=== PATIENT | male | born 1990 | race Caucasian/White ===

== ENCOUNTER 2021-03-09 03:12 | Inpatient (IN) | payer MEDICAID, SELFPAY ==
[2021-03-09] VITALS (53 sets, daily range): BP systolic 115–152; BP diastolic 51–95; PULSE 82–115; RESP 16–25; TEMP 36.3–36.9; O2SAT 74–99; BMI 29.0
--- NOTE | ~2021-03-09 | XR_ITS ---
EXAMINATION: XR chest 2V DATE: 03/12/2021 10:15 INDICATION: Pneumonia presenting with cough and chest pain post recent drug overdose with CPR. TECHNIQUE: PA and lateral views of the chest were obtained. COMPARISON: Chest CT dated 03/09/2021 FINDINGS: Confluent airspace opacities in the bilateral lower lobes and in the left perihilar region consistent with pneumonia. Small bilateral pleural effusions with blunting at the posterior sulci. No pneumotho rax. The cardiomediastinal silhouette is normal. Visualized bones and soft tissues are unremarkable. IMPRESSION: 1. Bilateral lung disease consistent with multifocal pneumonia which given distribution and provided clinical history is likely related to aspiration. 2. Small bilateral pleural effusions. Reviewed, dictated and finalized at location A. IMPRESSION: 1. Bilateral lung disease consistent with multifocal pneumonia which given dist ribution and provided clinical history is likely related to aspiration. 2. Small bilateral pleural effusions.
--- NOTE | ~2021-03-09 | CT_ITS ---
EXAMINATION: CT brain wo con, CT cervical spine wo con EXAM DATE: 03/09/2021 05:05 INDICATION: Head injury. CPR. TECHNIQUE: Spiral CT of the head was performed without contrast. Axial, coronal and sagittal images were reviewed. Spiral CT of the cervical spine was performed without contrast. Axial images were rev iewed. Coronal and sagittal reformatted images were also reviewed. The dose-length product (DLP) fo r this examination was 605.33 (accession [id number]), 508.53 (accession [id number]) mGy-cm. The exposure was tailored according to patient size, and iterative reconstruction (ASIR) was used as additional dose reduction technique. There is no prior study for comparison. FINDINGS: HEAD CT: There is no acute intraparenchymal hemorrhage. No evidence of intraparenchymal brain mass lesion. No evidence of acute infarction. There is no mass effect or midline shift. There is no obst ructive hydrocephalus suspected. There are no extra-axial collections. There are no acute calvarial fractures. The orbits are unremarkable. Soft tissue is unremarkable. The visualized sinuses and m astoid air cells are well aerated. CERVICAL CT: There is ill-defined bilateral upper lobe acute airspace disease, pneumonitis. Please co rrelate with CT chest report same date. There is no evidence of acute cervical fracture. The odontoi d process is intact. Pre-dens space is normal. Prevertebral soft tissue is normal. There are no so ft tissue abnormalities identified. There is no disc space widening or traumatic vertebral body subl uxation suspected. Vertebral body and disc heights are well-maintained. A detailed level by level evaluation of spondylosis can be added as addendum if requested. IMPRESSION: 1. No acute intracranial findings or cervical fracture. 2. Acute upper lobe pneumonitis. Reviewed, dictated and finalized at location A. IMPRESSION: 1. No acute intracranial findings or cervical fracture. 2. Acute upper lobe pneumonitis.
--- NOTE | ~2021-03-09 | CT_ITS ---
EXAMINATION: CT chest abdomen pelvis w con EXAM DATE: 03/09/2021 05:05 INDICATION: Chest trauma, had CPR done. TECHNIQUE: Spiral CT of the chest, abdomen and pelvis was performed following intravenous injection o f 100 mL Omnipaque 350. Axial, coronal and sagittal images chest, abdomen and pelvis were reviewed. Coronal maximum intensity pixel images of chest reviewed. The dose-length product (DLP) for this ex amination was 1598.53 mGy-cm. The exposure was tailored according to patient size (auto mA exposure control), and iterative reconstruction (ASIR) was used as additional dose reduction technique. There is no prior study for comparison. FINDINGS: CHEST: Several nondisplaced left rib fractures anteriorly. There is dependent left lung predominant a irspace disease with regions of confluence and more nondependent groundglass opacities. Probably aspi ration pneumonia, pneumonitis. There are no pleural or pericardial effusions. Tracheobronchial burak e is patent. There is no mediastinal, hilar or axillary lymphadenopathy. There is no pneumothorax . Heart normal in size. No evidence of coronary arterial calcification. ABDOMEN PELVIS: The liver, spleen, adrenal glands and pancreas are unremarkable. Gallbladder is unre markable. No biliary obstruction. Portal and splenic veins are patent. Kidneys enhance symmetrical ly. There is no hydronephrosis. The prostate is unremarkable. The bladder is unremarkable. There is no retroperitoneal or pelvic lymphadenopathy. There are no findings to suggest appendicitis. There is mild edema of the colon at the hepatic flexur e, possible mild colitis. The stomach and small bowel are unremarkable. There is expected amount of colonic stool. No free intraperitoneal gas. IMPRESSION: 1. Moderate amount of confluent pneumonia, groundglass opacities consistent with pneumonitis. Consid er aspiration etiology. 2. Several nondisplaced left rib fractures anteriorly. 3. Possible mild hepatic flexure colitis. Reviewed, dictated and finalized at location A. IMPRESSION: 1. Moderate amount of confluent pneumonia, groundglass opacities consistent wi th pneumonitis. Consider aspiration etiology. 2. Several nondisplaced left rib fractures anteriorly. 3. Possible mild hepatic flexure colitis.
--- NOTE | 2021-03-09 03:25 | ECG_ITS ---
Measurements Intervals [place] Rate: 97 P: 49 NV: 146 QRS: 72 QRSD: 113 T: 47 QT: 363 QTc: 462 Interpretive Statements SINUS RHYTHM INTRAVENTRICULAR CONDUCTION DELAY DELAYED PRECORDIAL R/S TRANSITION ST ELEVATION IN DIFFUSE LEADS, PROBABLY EARLY REPOLARIZATION BASELINE ARTIFACT- II, III, AVR, AVF, V3-V6 BORDERLINE ECG Electronically Signed On 03-09-2021 7:51:43 CDT by Blayne Cortez D.O.
[2021-03-09] MEDS: NALOXONE HCL INJ 2 MG/2 ML AMP IV PUSH (03:45)
[2021-03-09 03:53] LABS: Alveolar/Arterial O2 Gradient 604.4 mmHg; Base Excess ABG -3.7 mEq/l (+/-2.0); Fractional Inspired Oxygen 100 %; HCO3 ABG 22.8 mEq/l (22.0-26.0); Oxygen Content ABG 19.2 %vol (16.0-22.0); Oxygen Saturation ABG 89.5 % (95.0-100.0); Oxyhemoglobin 87.1 % THb (90.0-100.0); PCO2 ABG 46.7 mmHg (35.0-45.0); PO2 ABG 61.9 mmHg (80.0-100.0); PO2 FiO2 Ratio Arterial Blood 0.62 %; Total Hemoglobin 15.7 g/dL (12.0-18.0); pH ABG 7.307 (7.350-7.450)
[2021-03-09 03:54] LABS: Modified Allen's Test Pass; Site Drawn RIGHT RADIAL
[2021-03-09 03:55] LABS: Device NON-REBREATHER MASK
[2021-03-09 04:19] LABS: Basophils Percent Auto 0.6 % (0.2-1.2); Eosinophils Absolute Auto 0.1 K/mm3 (0-0.3); Eosinophils Percent Auto 0.7 % (0-4.4); Hemoglobin 14.9 g/dL (14.0-18.0); Lymphocytes Absolute Auto 1.45 K/mm3 (0.9-3.2); Lymphocytes Percent Auto 21.6 % (18.3-44.2); Mean Corpuscular HGB Conc 33.1 g/dl (32-36); Mean Corpuscular Hemoglobin 31.5 pg (26-34); Mean Corpuscular Volume 95.1 fl (80-100); Mean Platelet Volume 9.5 fl (7.4-10.4); Monocytes Absolute Auto 0.4 K/mm3 (0.1-0.6); Monocytes Percent Auto 6.6 % (2.6-8.5); Neutrophils Absolute Auto 4.5 K/mm3 (1.3-6.7); Neutrophils Percent Auto 67.5 % (45.5-73.1); Platelet Count Result 237 k/mm3 (150-375); Red Blood Count 4.73 M/mm3 (4.6-6.20); Red Cell Distribution Width 11.9 % (11.5-14.5); White Blood Count 6.7 K/mm3 (4.5-10.0)
[2021-03-09 04:36] LABS: Alanine Aminotransferase 24 U/L (4-50); Albumin Level 3.9 g/dL (3.5-5.1); Alkaline Phosphatase 70 U/L (38-126); Anion Gap 8 mmol/L (8-16); Aspartate Amino Transferase 29 U/L (17-59); Bilirubin,Total 0.3 mg/dL (0.2-1.3); Blood Urea Nitrogen 12 mg/dL (9-20); Calcium 8.7 mg/dL (8.4-10.2); Carbon Dioxide 27 mmol/L (22-30); Chloride 107 mmol/L (98-107); Estimated CRCL calculation 121 ml/min; Estimated Glomerular Filt Rate > 60; Glucose 103 mg/dL (65-110); Lactic Acid Reflex 2.1 mmol/L (0.7-2.1); Potassium 4.2 mmol/L (3.4-5.0); Sodium 142 mmol/L (137-145)
[2021-03-09 04:47] LABS: Troponin I < 0.012 ng/mL (0.000-0.034)
[2021-03-09 04:53] LABS: Add Urine Microscopic? YES; Appearance Urine Cloudy (Clear); Bacteria Urine 1+ /hpf; Bilirubin Urine Negative (Negative); Blood Urine 1+ (Negative); Color Urine Yellow (Yellow); Glucose Urine UA 1+ mg/dL (Negative); Ketones Urine Trace mg/dL (Negative); Leukocyte Esterase Ur Trace LEU/UL (Negative); Mucus Urine Heavy /lpf; Nitrate Urine Negative (Negative); Protein Urine 3+ mg/dL (Negative); WBC Urine 51-75 /hpf
[2021-03-09 04:54] LABS: Specific Grav Ur 1.033 (1.001-1.035)
--- NOTE | 2021-03-09 05:04 | ED.GENADULT ---
HPI - General Adult General Chief complaint: Overdose Stated complaint: OD Time Seen by Provider: 03/09/21 03:14 History of Present Illness HPI narrative: Patient 30-year-old gentleman presents emerged from with chief complaint of overdose. The patient states that he was using what he thought was cocaine and ended up being an opiate type medication the patient had CPR performed on him by bystanders and received Narcan by EMS and police. On arrival the patient is awake alert reports that his chest is sore from where he received compressions and reports that he feels a little drowsy. Related Data Allergies Allergy/AdvReac Type Severity Reaction Status Date / Time No Known Allergies Allergy Verified 03/09/21 04:06 Review of Systems Review of Systems: A 10 system review of systems was completed on the patient and is negative except for what is stated in the HPI. Nursing and ancillary documentation was reviewed. Exam Narrative: GENERAL: Well-appearing, well-nourished, and in no acute distress. HEAD: Normocephalic, atraumatic. EYES: PERRLA and EOMI. ENT: Nares clear, no rhinorrhea or epistaxis. Mucous membranes moist. NECK: Supple. CHEST: Clear to auscultation. No respiratory distress. Chest wall is tender to palpation there is no crepitus noted or subcu emphysema HEART: Regular rate and rhythm. No murmur heard. Normal peripheral pulses. ABDOMEN: Soft, nontender, nondistended, normal active bowel sounds. EXTREMITIES: Normal range of motion. No edema. SKIN: Warm, dry, no rash. NEURO: No focal deficits. Alert and oriented x3. PSYCH: Normal mood and affect. Course Vital Signs Vital signs: Vital Signs Pulse Rate 113 H 03/09/21 03:51 Respiratory Rate 20 03/09/21 03:51 Temperature 36.7 C 03/09/21 04:04 Pulse Rate 92 03/09/21 06:01 Respiratory Rate 23 H 03/09/21 06:01 Blood Pressure 147/95 H 03/09/21 06:01 Pulse Oximetry 95 03/09/21 06:29 Medical Decision Making Vital Signs Vital Signs: Vital Signs Pulse Rate 113 H 03/09/21 03:51 Respiratory Rate 20 03/09/21 03:51 Temperature 36.7 C 03/09/21 04:04 Pulse Rate 92 03/09/21 06:01 Respiratory Rate 23 H 03/09/21 06:01 Blood Pressure 147/95 H 03/09/21 06:01 Pulse Oximetry 95 03/09/21 06:29 Lab Data Result diagrams: 03/09/21 04:07 03/09/21 04:07 Labs: Lab Results 03/09/21 03/09/21 03/09/21 Range/Units 04:07 04:07 04:07 WBC 6.7 (4.5-10.0) K/mm3 RBC 4.73 (4.6-6.20) M/mm3 Hgb 14.9 (14.0-18.0) g/dL Hct 45.0 (42.0-52.0) % MCV 95.1 (80-100) fl MCH 31.5 (26-34) pg MCHC 33.1 (32-36) g/dl RDW 11.9 (11.5-14.5) % Plt Count 237 (150-375) k/mm3 MPV 9.5 (7.4-10.4) fl Immature Gran % (Auto) 3.0 H (0-0.5) % Neut % (Auto) 67.5 (45.5-73.1) % Lymph % (Auto) 21.6 (18.3-44.2) % Holt % (Auto) 6.6 (2.6-8.5) % Eos % (Auto) 0.7 (0-4.4) % Baso % (Auto) 0.6 (0.2-1.2) % Lymph # (Auto) 1.45 (0.9-3.2) K/mm3 Holt # (Auto) 0.4 (0.1-0.6) K/mm3 Eos # (Auto) 0.1 (0-0.3) K/mm3 Baso # (Auto) 0.0 (0.0-0.1) K/mm3 Abs Immat Gran (auto) 0.20 H (0.00-0.031) K/mm3 Absolute Neuts (auto) 4.5 (1.3-6.7) K/mm3 Absolute Nucleated RBC 0.0 (0.0-0.012) K/mm3 Nucleated RBC % 0.0 (0.0-0.2) % Sodium 142 (137-145) mmol/L Potassium 4.2 (3.4-5.0) mmol/L Chloride 107 (98-107) mmol/L Carbon Dioxide 27 (22-30) mmol/L Anion Gap 8 (8-16) mmol/L BUN 12 (9-20) mg/dL Creatinine 0.90 (0.7-1.3) mg/dL Estim Creat Clear Calc 121 ml/min Estimated GFR > 60 (59 - ) Glucose 103 (65-110) mg/dL Lactic Acid (0.7-2.1) mmol/L Calcium 8.7 (8.4-10.2) mg/dL Total Bilirubin 0.3 (0.2-1.3) mg/dL AST 29 (17-59) U/L ALT 24 (4-50) U/L Alkaline Phosphatase 70 (38-126) U/L Troponin I < 0.012 (0.000-0.034) ng/mL Total Protein 7.0 (6.3-8.2) g/dL Albumin
[2021-03-09] MEDS: AMPICILLIN SULB 3 GM/NS 100 ML 3 GM/100 ML VIAL IVPB ×3 (07:04→17:58)
[2021-03-09 07:05] LABS: Barbiturate Screen Urine Negative (Negative); Benzodiazepines Screen Urine Negative (Negative)
[2021-03-09 07:12] LABS: Cannabinoid Screen Urine Negative (Negative); Cocaine Screen Urine Negative (Negative); Methadone Screen Urine Negative (Negative); Opiate Screen Urine Negative (Negative); Phencyclidine Screen Urine Negative (Negative)
[2021-03-09 07:17] LABS: Reflex Lactic Acid Yes or No Add Lactic
[2021-03-09 07:27] LABS: EDCOVIDSCREEN Negative (Negative)
[2021-03-09 07:37] LABS: Amphetamine Screen Urine Positive (Negative)
[2021-03-09] MEDS: SODIUM CHLORIDE 0.9% IV 1,000 ML 125 ML IV CONT ×2 (09:40→17:57)
--- NOTE | 2021-03-09 09:45 | ADMGEN ---
This patient, Amaury Mishra, was admitted to IMU Room 202-01. Patient/family oriented to hospital policies and general routines including ID bracelet, bed and alarms, visiting hours, pain management, procedures, bathroom and other care routines, personal items, smoking policy, room service/diet, and visiting hours. Information on how to activate the Rapid Response Team has been discussed. Patient/Family are encouraged to report perceived risks to care and to ask questions if they do not understand what they are told or what they should do.
--- NOTE | 2021-03-09 15:35 | PM.IMHP ---
H&P: HPI History of Present Illness Date/Time: 03/09/21 15:35 Chief Complaint: Unresponsiveness, overdose Narrative: Is a 22-year-old gentleman brought to the ER via EMS with unresponsiveness. He states that he was snorting cocaine last night he is on chair by the time. When he went risk unresponsive. CPR was performed by bystander. When EMS arrived he was found lying on the ground unresponsive with gasping respiration pale and diaphoretic. The patient had a needle sticking out of his pocket. He was assisted with ventilation by EMS. The patient's pupil was pinpoint. He was given 4 mg Narcan intranasally and IV was stabbed listen 2 mg of Narcan was given IV. Patient started spontaneous respiration but still was not responsive to painful stimuli. After 5 minutes the 2nd dose of Narcan was administered 2 mg IV after which he started to wake up. And his color started to return to normal and he became more alert. He was then brought to the ED for evaluation. He complained of pain in his chest on the left side. In route to the ED his pulse oximetry was low setting around 90% but patient did not have any difficulty or distress. He states that he thought he was snorting cocaine however he thinks it might be something else. [place] In the ER his been eating couple L oxygen via nasal cannula reports left chest pain and some cough. Evaluation noted to have multiple rib fracture on left side likely from chest compressions pneumonia. His admitted for further evaluation and management. He states that he has been using illicit drugs for some time use to be more regular back in high school however only uses socially lately. He states he has used about everything. Review of Systems Review of Systems: - CONSTITUTIONAL: Denies weight loss, fever and chills. - HEENT: Denies changes in vision and hearing - RESPIRATORY: Denies SOB and reports cough. - CV: Denies palpitations and reports CP. - GI: Denies abdominal pain, nausea, vomiting and diarrhea. - : Denies dysuria and urinary frequency. - MSK: Denies myalgia and joint pain. - SKIN: Denies rash and pruritus. - NEUROLOGICAL: Denies headache and syncope. - PSYCHIATRIC: Denies recent changes in mood. Denies anxiety and depression. All systems reviewed & are unremarkable except as noted in HPI and below Constitutional: Constitutional: Reports fatigue and Reports weakness Neurologic: Reports weakness Endocrine: Endocrine: Reports fatigue PMFSH Social History Social History Smoking status: Unknown if ever smoked Alcohol intake: current Drinks per week: 7 Substance use: current Substance use type: crack/cocaine and amphetamines Spiritual care concerns: No Meds Home Medications and Allergies Home Medications Medication Instructions Recorded Confirmed Type No Home Medications 03/09/21 03/09/21 History Allergies Allergy/AdvReac Type Severity Reaction Status Date / Time No Known Allergies Allergy Verified 03/09/21 04:06 Vital Signs Vital Signs - 24 hr 03/09/21 03:51 03/09/21 04:00 03/09/21 04:01 Temperature Pulse Rate 113 H 114 H 115 H Respiratory Rate 20 18 Blood Pressure 120/51 L Pulse Oximetry 03/09/21 04:04 03/09/21 04:07 03/09/21 04:08 Temperature 98.1 F Pulse Rate 106 H Respiratory Rate 18 18 Blood Pressure 118/60 Pulse Oximetry 74 L 96 03/09/21 04:15 03/09/21 04:16 03/09/21 04:30 Temperature Pulse Rate 109 H 112 H 110 H Respiratory Rate 18 Blood Pressure 119/53 L Pulse Oximetry 03/09/21 04:31 03/09/21 04:32 03/09/21 05:02 Temperature Pulse Rate 113 H 110 H 110 H Respiratory Rate 21 H 19 Blood Pressure 132/71 Pulse Oximetry 03/09/21 05:05 03/09/21 05:15 03/09/21 05:16 Temperature Pulse Rate 97 97 106 H Respiratory Rate 18 Blood Pressure 151/80 H 151/84 H Pulse Oximet
[2021-03-10] VITALS (14 sets, daily range): BP systolic 132–139; BP diastolic 66–76; PULSE 80–108; RESP 14–24; TEMP 36.3–36.7; O2SAT 92–99
[2021-03-10] MEDS: AMPICILLIN SULB 3 GM/NS 100 ML 3 GM/100 ML VIAL IVPB ×5 (00:16→23:19)
[2021-03-10] MEDS: SODIUM CHLORIDE 0.9% IV 1,000 ML 125 ML IV CONT (00:16)
[2021-03-10 05:15] LABS: Basophils Percent Auto 0.2 % (0.2-1.2); Eosinophils Absolute Auto 0.2 K/mm3 (0-0.3); Eosinophils Percent Auto 1.4 % (0-4.4); Hematocrit 43.4 % (42.0-52.0); Hemoglobin 14.1 g/dL (14.0-18.0); Immature Granulocyte Absolute 0.05 K/mm3 (0.00-0.031); Immature Granulocyte Percent A 0.4 % (0-0.5); Lymphocytes Absolute Auto 1.77 K/mm3 (0.9-3.2); Lymphocytes Percent Auto 14.1 % (18.3-44.2); Mean Corpuscular HGB Conc 32.5 g/dl (32-36); Mean Corpuscular Hemoglobin 31.4 pg (26-34); Mean Corpuscular Volume 96.7 fl (80-100); Monocytes Absolute Auto 0.7 K/mm3 (0.1-0.6); Monocytes Percent Auto 5.7 % (2.6-8.5); Neutrophils Absolute Auto 9.8 K/mm3 (1.3-6.7); Neutrophils Percent Auto 78.2 % (45.5-73.1); Platelet Count Result 233 k/mm3 (150-375); Red Blood Count 4.49 M/mm3 (4.6-6.20); Red Cell Distribution Width 12.1 % (11.5-14.5); White Blood Count 12.5 K/mm3 (4.5-10.0)
[2021-03-10 05:28] LABS: Alanine Aminotransferase 17 U/L (4-50); Albumin Level 3.5 g/dL (3.5-5.1); Alkaline Phosphatase 63 U/L (38-126); Anion Gap 4 mmol/L (8-16); Aspartate Amino Transferase 20 U/L (17-59); Bilirubin,Total 0.9 mg/dL (0.2-1.3); Blood Urea Nitrogen 7 mg/dL (9-20); Calcium 8.3 mg/dL (8.4-10.2); Carbon Dioxide 28 mmol/L (22-30); Chloride 101 mmol/L (98-107); Creatine Kinase 51 U/L (55-170); Estimated CRCL calculation 178 ml/min; Estimated Glomerular Filt Rate > 60; Glucose 93 mg/dL (65-110); Potassium 3.8 mmol/L (3.4-5.0); Sodium 133 mmol/L (137-145)
[2021-03-10] MEDS: ENOXAPARIN 40 MG/0.4 ML SYRINGE SUB-Q (08:39)
--- NOTE | 2021-03-10 12:18 | PM.IMPN ---
Progress Note: A&P Assessment and Plan (1) Drug overdose: Qualifiers: Encounter type: initial encounter Injury intent: accidental or unintentional Qualified Code(s): T50.901A - Poisoning by unspecified drugs, medicaments and biological substances, accidental (unintentional), initial encounter Code(s): T50.901A - Poisoning by unspecified drugs, medicaments and biological substances, accidental (unintentional), initial encounter Status: Acute Assessment and Plan: Found down/unresponsive after use of cocaine however might be mixed with multiple different drugs UDS positive for amphetamine Intentional use (2) Aspiration pneumonia: Qualifiers: Aspiration pneumonia type: due to vomit Laterality: bilateral Lung location: unspecified part of lung Qualified Code(s): J69.0 - Pneumonitis due to inhalation of food and vomit Code(s): J69.0 - Pneumonitis due to inhalation of food and vomit Status: Acute Assessment and Plan: Unasyn order will continue same (3) Closed rib fracture: Qualifiers: Encounter type: initial encounter Laterality: left Rib fracture type: multiple ribs Qualified Code(s): S22.42XA - Multiple fractures of ribs, left side, initial encounter for closed fracture Code(s): S22.39XA - Fracture of one rib, unspecified side, initial encounter for closed fracture Status: Acute Assessment and Plan: Due to chest compression Incentive spirometry (4) Respiratory failure with hypoxia: Code(s): J96.91 - Respiratory failure, unspecified with hypoxia Status: Acute Assessment and Plan: Due to drug overdose Reverse with use of Narcan in the site next continue to monitor pulse oximetry on nasal cannula oxygen (5) UTI (urinary tract infection): Code(s): N39.0 - Urinary tract infection, site not specified Status: Acute Assessment and Plan: On Unasyn Follow urine culture (6) Acute encephalopathy: Code(s): G93.40 - Encephalopathy, unspecified Status: Acute Assessment and Plan: CT head negative Likely due to drug overdose (7) Colitis: Code(s): K52.9 - Noninfective gastroenteritis and colitis, unspecified Status: Acute Assessment and Plan: Possible colitis per CT No diarrhea Continue to monitor Additional Plan DVT prophylaxis Lovenox Subjective Date/time seen: 03/10/21 12:18 Interval history: no overnight events. Continues to have some chest pain. Cough persist. Using incentive spirometry. He is still on 6 L oxygen. Shortness of breath with activity reported. Review of Systems Review of Systems: All systems reviewed & are unremarkable except as noted in HPI and below Exam Narrative: GENERAL: Well-appearing, well-nourished, More awake today in no acute distress. HEAD: Normocephalic, bruises noted on his left forehead EYES: PERRLA and EOMI. ENT: Nares clear, no rhinorrhea or epistaxis. Mucous membranes moist. NECK: Supple. CHEST: Coarse breath sound bilaterally, No respiratory distress. Chest wall is tender to palpation there is no crepitus noted or subcutaneous emphysema HEART: Regular rate and rhythm. No murmur heard. Normal peripheral pulses. ABDOMEN: Soft, nontender, nondistended, normal active bowel sounds. EXTREMITIES: Normal range of motion. No edema. SKIN: Warm, dry, no rash. NEURO: No focal deficits. Alert and oriented x3. PSYCH: Normal mood and affect. Objective Data Vital Signs Vital Signs: Vital Signs - 24 hr 03/09/21 13:15 03/09/21 15:10 03/09/21 16:00 Temperature 97.4 F L Pulse Rate 82 93 Respiratory Rate 20 Blood Pressure 124/69 Pulse Oximetry 93 93 03/09/21 17:28 03/09/21 17:59 03/09/21 20:00 Temperature Pulse Rate 91 96 Respiratory Rate Blood Pressure Pulse Oximetry 92 95 03/09/21 20:12 03/09/21 22:00 03/09/21 23:27 Temperature 98.4 F 97.8 F Pulse Rate 101 H 103 H 102 H Respira
--- NOTE | 2021-03-10 23:45 | PC.NURSE ---
This patient, Amaury Mishra, was received from [[id number]] on 03/10/21 at 2225. Patient/family oriented to unit policies and routines.
[2021-03-11 02:15] VITALS: O2SAT 91
[2021-03-11 04:00] VITALS: BP 143/64; PULSE 67; RESP 16; TEMP 36.6; O2SAT 92
[2021-03-11] MEDS: AMPICILLIN SULB 3 GM/NS 100 ML 3 GM/100 ML VIAL IVPB ×4 (05:43→23:28)
[2021-03-11 06:07] LABS: Basophils Percent Auto 0.2 % (0.2-1.2); Eosinophils Absolute Auto 0.2 K/mm3 (0-0.3); Eosinophils Percent Auto 1.6 % (0-4.4); Hematocrit 43.9 % (42.0-52.0); Hemoglobin 14.2 g/dL (14.0-18.0); Immature Granulocyte Absolute 0.06 K/mm3 (0.00-0.031); Immature Granulocyte Percent A 0.6 % (0-0.5); Lymphocytes Absolute Auto 1.45 K/mm3 (0.9-3.2); Lymphocytes Percent Auto 15.6 % (18.3-44.2); Mean Corpuscular HGB Conc 32.3 g/dl (32-36); Mean Corpuscular Hemoglobin 30.7 pg (26-34); Monocytes Absolute Auto 0.9 K/mm3 (0.1-0.6); Monocytes Percent Auto 9.5 % (2.6-8.5); Neutrophils Absolute Auto 6.7 K/mm3 (1.3-6.7); Neutrophils Percent Auto 72.5 % (45.5-73.1); Platelet Count Result 238 k/mm3 (150-375); Red Blood Count 4.62 M/mm3 (4.6-6.20); Red Cell Distribution Width 11.8 % (11.5-14.5); White Blood Count 9.3 K/mm3 (4.5-10.0)
[2021-03-11 06:21] LABS: Anion Gap 9 mmol/L (8-16); Blood Urea Nitrogen 4 mg/dL (9-20); Carbon Dioxide 29 mmol/L (22-30); Chloride 99 mmol/L (98-107); Estimated CRCL calculation 177 ml/min; Estimated Glomerular Filt Rate > 60; Glucose 100 mg/dL (65-110); Potassium 4.2 mmol/L (3.4-5.0); Sodium 137 mmol/L (137-145)
[2021-03-11 07:28] VITALS: BP 131/70; PULSE 72; RESP 18; TEMP 36.9; O2SAT 99
[2021-03-11] MEDS: ENOXAPARIN 40 MG/0.4 ML SYRINGE SUB-Q (08:18)
[2021-03-11 12:00] VITALS: BP 132/77; PULSE 77; RESP 16; O2SAT 96
[2021-03-11 15:15] VITALS: BP 134/68; PULSE 76; RESP 18; TEMP 36.8; O2SAT 94
--- NOTE | 2021-03-11 16:36 | PM.IMPN ---
Progress Note: A&P Assessment and Plan (1) Drug overdose: Qualifiers: Encounter type: initial encounter Injury intent: accidental or unintentional Qualified Code(s): T50.901A - Poisoning by unspecified drugs, medicaments and biological substances, accidental (unintentional), initial encounter Code(s): T50.901A - Poisoning by unspecified drugs, medicaments and biological substances, accidental (unintentional), initial encounter Status: Acute Assessment and Plan: Found down/unresponsive after use of cocaine however might be mixed with multiple different drugs UDS positive for amphetamine Intentional use interval history 03/11 Patient still remains quite somnolent complaint shortness ribs pain, patient is being treated with aspiration pneumonia with Unasyn will continue to monitor, patient with a history of alcohol abuse high risk of DT start the patient on CIWA protocol and Librium, will continue to monitor further recommendation to follow. (2) Aspiration pneumonia: Qualifiers: Aspiration pneumonia type: due to vomit Laterality: bilateral Lung location: unspecified part of lung Qualified Code(s): J69.0 - Pneumonitis due to inhalation of food and vomit Code(s): J69.0 - Pneumonitis due to inhalation of food and vomit Status: Acute Assessment and Plan: Unasyn order will continue same (3) Closed rib fracture: Qualifiers: Encounter type: initial encounter Laterality: left Rib fracture type: multiple ribs Qualified Code(s): S22.42XA - Multiple fractures of ribs, left side, initial encounter for closed fracture Code(s): S22.39XA - Fracture of one rib, unspecified side, initial encounter for closed fracture Status: Acute Assessment and Plan: Due to chest compression Incentive spirometry (4) Respiratory failure with hypoxia: Code(s): J96.91 - Respiratory failure, unspecified with hypoxia Status: Acute Assessment and Plan: Due to drug overdose Reverse with use of Narcan in the site next continue to monitor pulse oximetry on nasal cannula oxygen (5) UTI (urinary tract infection): Code(s): N39.0 - Urinary tract infection, site not specified Status: Acute Assessment and Plan: On Unasyn Follow urine culture (6) Acute encephalopathy: Code(s): G93.40 - Encephalopathy, unspecified Status: Acute Assessment and Plan: CT head negative Likely due to drug overdose (7) Colitis: Code(s): K52.9 - Noninfective gastroenteritis and colitis, unspecified Status: Acute Assessment and Plan: Possible colitis per CT No diarrhea Continue to monitor Additional Plan DVT prophylaxis Lovenox Subjective Date/time seen: 03/11/21 16:36 Chief Complaint: Unresponsiveness, overdose Narrative: Is a 22-year-old gentleman brought to the ER via EMS with unresponsiveness. He states that he was snorting cocaine last night he is on chair by the time. When he went risk unresponsive. CPR was performed by bystander. When EMS arrived he was found lying on the ground unresponsive with gasping respiration pale and diaphoretic. The patient had a needle sticking out of his pocket. He was assisted with ventilation by EMS. The patient's pupil was pinpoint. He was given 4 mg Narcan intranasally and IV was stabbed listen 2 mg of Narcan was given IV. Patient started spontaneous respiration but still was not responsive to painful stimuli. After 5 minutes the 2nd dose of Narcan was administered 2 mg IV after which he started to wake up. And his color started to return to normal and he became more alert. He was then brought to the ED for evaluation. He complained of pain in his chest on the left side. In route to the ED his pulse oximetry was low setting around 90% but patient did not have any difficulty or distress. He states that he thought he was snorting cocaine however he thinks it might be something else. H
[2021-03-11] MEDS: HYDROcodone/acetaminophen (*CRX) 5-325 MG TABLET 1 TAB PO ×2 (18:17→23:31)
[2021-03-11 20:00] VITALS: BP 121/71; PULSE 65; RESP 20; TEMP 36.1; O2SAT 100
[2021-03-11] MEDS: chlordiazePOXIDE (*CRX) 25 MG CAPSULE PO (22:02)
[2021-03-12] VITALS: BP 122/75; PULSE 61; RESP 18; TEMP 36.2; O2SAT 100
[2021-03-12 05:03] VITALS: BP 127/76; PULSE 63; RESP 18; O2SAT 100
[2021-03-12] MEDS: chlordiazePOXIDE (*CRX) 25 MG CAPSULE PO ×3 (05:05→21:50)
[2021-03-12] MEDS: AMPICILLIN SULB 3 GM/NS 100 ML 3 GM/100 ML VIAL IVPB ×4 (05:05→23:35)
[2021-03-12 07:27] VITALS: BP 132/70; PULSE 63; RESP 18; TEMP 36.7; O2SAT 100; O2SAT 95
[2021-03-12] MEDS: ENOXAPARIN 40 MG/0.4 ML SYRINGE SUB-Q (08:03)
[2021-03-12 10:02] LABS: Hematocrit 44.8 % (42.0-52.0); Hemoglobin 14.8 g/dL (14.0-18.0); Mean Corpuscular Hemoglobin 31.3 pg (26-34); Mean Corpuscular Volume 94.7 fl (80-100); Platelet Count Result 253 k/mm3 (150-375); Red Blood Count 4.73 M/mm3 (4.6-6.20); Red Cell Distribution Width 11.8 % (11.5-14.5); White Blood Count 5.2 K/mm3 (4.5-10.0)
[2021-03-12 10:15] LABS: Alanine Aminotransferase 13 U/L (4-50); Albumin Level 3.8 g/dL (3.5-5.1); Alkaline Phosphatase 55 U/L (38-126); Anion Gap 11 mmol/L (8-16); Aspartate Amino Transferase 18 U/L (17-59); Bilirubin,Total 0.6 mg/dL (0.2-1.3); Blood Urea Nitrogen 9 mg/dL (9-20); Calcium 9.1 mg/dL (8.4-10.2); Carbon Dioxide 29 mmol/L (22-30); Chloride 99 mmol/L (98-107); Estimated CRCL calculation 157 ml/min; Estimated Glomerular Filt Rate > 60; Glucose 120 mg/dL (65-110); Magnesium 1.9 mg/dL (1.6-2.3); Potassium 3.7 mmol/L (3.4-5.0); Sodium 139 mmol/L (137-145)
[2021-03-12 11:07] VITALS: BP 125/68; PULSE 68; RESP 14; TEMP 36.6; O2SAT 96
[2021-03-12] MEDS: HYDROcodone/acetaminophen (*CRX) 5-325 MG TABLET 1 TAB PO ×2 (12:43→21:37)
[2021-03-12 15:24] VITALS: BP 124/68; PULSE 76; RESP 14; TEMP 36.6; O2SAT 94
--- NOTE | 2021-03-12 18:15 | PM.IMPN ---
Progress Note: A&P Assessment and Plan (1) Drug overdose: Qualifiers: Encounter type: initial encounter Injury intent: accidental or unintentional Qualified Code(s): T50.901A - Poisoning by unspecified drugs, medicaments and biological substances, accidental (unintentional), initial encounter Code(s): T50.901A - Poisoning by unspecified drugs, medicaments and biological substances, accidental (unintentional), initial encounter Status: Acute Assessment and Plan: 03/12/21 18:15 Found down/unresponsive after use of cocaine however might be mixed with multiple different drugs UDS positive for amphetamine Intentional use interval history 03/11 Patient still remains quite somnolent complaint shortness ribs pain, patient is being treated with aspiration pneumonia with Unasyn will continue to monitor, patient with a history of alcohol abuse high risk of DT start the patient on CIWA protocol and Librium, will continue to monitor further recommendation to follow. interval history 03/12 Today patient complains of cough and sore in his chest, does appear in pain, to further evaluate chest x-ray was shows persistent bilateral patchy pneumonia suspect aspiration, will add vancomycin to Unasyn, patient remains clinically stable is not as tremulous today, will continue to monitor will have a PT OT evaluate the patient and further recommendation to follow (2) Aspiration pneumonia: Qualifiers: Aspiration pneumonia type: due to vomit Laterality: bilateral Lung location: unspecified part of lung Qualified Code(s): J69.0 - Pneumonitis due to inhalation of food and vomit Code(s): J69.0 - Pneumonitis due to inhalation of food and vomit Status: Acute Assessment and Plan: Unasyn order will continue same (3) Closed rib fracture: Qualifiers: Encounter type: initial encounter Laterality: left Rib fracture type: multiple ribs Qualified Code(s): S22.42XA - Multiple fractures of ribs, left side, initial encounter for closed fracture Code(s): S22.39XA - Fracture of one rib, unspecified side, initial encounter for closed fracture Status: Acute Assessment and Plan: Due to chest compression Incentive spirometry (4) Respiratory failure with hypoxia: Code(s): J96.91 - Respiratory failure, unspecified with hypoxia Status: Acute Assessment and Plan: Due to drug overdose Reverse with use of Narcan in the site next continue to monitor pulse oximetry on nasal cannula oxygen (5) UTI (urinary tract infection): Code(s): N39.0 - Urinary tract infection, site not specified Status: Acute Assessment and Plan: On Unasyn Follow urine culture (6) Acute encephalopathy: Code(s): G93.40 - Encephalopathy, unspecified Status: Acute Assessment and Plan: CT head negative Likely due to drug overdose (7) Colitis: Code(s): K52.9 - Noninfective gastroenteritis and colitis, unspecified Status: Acute Assessment and Plan: Possible colitis per CT No diarrhea Continue to monitor Additional Plan DVT prophylaxis Lovenox Subjective Date/time seen: 03/12/21 18:15 Found down/unresponsive after use of cocaine however might be mixed with multiple different drugs UDS positive for amphetamine Intentional use interval history 03/11 Patient still remains quite somnolent complaint shortness ribs pain, patient is being treated with aspiration pneumonia with Unasyn will continue to monitor, patient with a history of alcohol abuse high risk of DT start the patient on CIWA protocol and Librium, will continue to monitor further recommendation to follow. interval history 03/12 Today patient complains of cough and sore in his chest, does appear in pain, to further evaluate chest x-ray was shows persistent bilateral patchy pneumonia suspect aspiration, will add vancomycin to Unasyn, patient remains clinically stable is not as burak
[2021-03-12 20:00] VITALS: BP 123/65; PULSE 56; RESP 18; TEMP 36.3; O2SAT 100
[2021-03-13] VITALS (8 sets, daily range): BP systolic 107–135; BP diastolic 60–87; PULSE 56–72; RESP 14–20; TEMP 36–36.3; O2SAT 98–100
[2021-03-13] MEDS: AMPICILLIN SULB 3 GM/NS 100 ML 3 GM/100 ML VIAL IVPB ×4 (05:28→23:51)
[2021-03-13] MEDS: chlordiazePOXIDE (*CRX) 25 MG CAPSULE PO ×3 (05:28→21:47)
[2021-03-13 06:11] LABS: Hematocrit 45.7 % (42.0-52.0); Hemoglobin 15.4 g/dL (14.0-18.0); Mean Corpuscular HGB Conc 33.7 g/dl (32-36); Mean Platelet Volume 9.5 fl (7.4-10.4); Platelet Count Result 315 k/mm3 (150-375); Red Blood Count 4.97 M/mm3 (4.6-6.20); Red Cell Distribution Width 11.4 % (11.5-14.5); White Blood Count 4.3 K/mm3 (4.5-10.0)
[2021-03-13 06:25] LABS: Alanine Aminotransferase 13 U/L (4-50); Alkaline Phosphatase 63 U/L (38-126); Anion Gap 10 mmol/L (8-16); Aspartate Amino Transferase 16 U/L (17-59); Bilirubin,Total 0.6 mg/dL (0.2-1.3); Blood Urea Nitrogen 7 mg/dL (9-20); Calcium 9.4 mg/dL (8.4-10.2); Carbon Dioxide 27 mmol/L (22-30); Chloride 103 mmol/L (98-107); Estimated CRCL calculation 157 ml/min; Estimated Glomerular Filt Rate > 60; Glucose 89 mg/dL (65-110); Potassium 3.9 mmol/L (3.4-5.0); Sodium 140 mmol/L (137-145)
[2021-03-13] MEDS: ENOXAPARIN 40 MG/0.4 ML SYRINGE SUB-Q (09:40)
--- NOTE | 2021-03-13 10:34 | PC.NURSE ---
DR. LEACH HERE TO SEE PT. CONDITION UPDATE GIVEN. CONTINUE IV ABX.
--- NOTE | 2021-03-13 16:58 | PM.IMPN ---
Progress Note: A&P Assessment and Plan (1) Drug overdose: Qualifiers: Encounter type: initial encounter Injury intent: accidental or unintentional Qualified Code(s): T50.901A - Poisoning by unspecified drugs, medicaments and biological substances, accidental (unintentional), initial encounter Code(s): T50.901A - Poisoning by unspecified drugs, medicaments and biological substances, accidental (unintentional), initial encounter Status: Acute Assessment and Plan: 03/13/21 16:58 Found down/unresponsive after use of cocaine however might be mixed with multiple different drugs UDS positive for amphetamine Intentional use interval history 03/11 Patient still remains quite somnolent complaint shortness ribs pain, patient is being treated with aspiration pneumonia with Unasyn will continue to monitor, patient with a history of alcohol abuse high risk of DT start the patient on CIWA protocol and Librium, will continue to monitor further recommendation to follow. interval history 03/12 Today patient complains of cough and sore in his chest, does appear in pain, to further evaluate chest x-ray was shows persistent bilateral patchy pneumonia suspect aspiration, will add vancomycin to Unasyn, patient remains clinically stable is not as tremulous today, will continue to monitor will have a PT OT evaluate the patient and further recommendation to follow. interval history 03/12 today patient states is feeling much better not a short of breath and on room air, no fever or chills, continue 1 more day Unasyn and vancomycin remains clinically stable will discharge the patient tomorrow. (2) Aspiration pneumonia: Qualifiers: Aspiration pneumonia type: due to vomit Laterality: bilateral Lung location: unspecified part of lung Qualified Code(s): J69.0 - Pneumonitis due to inhalation of food and vomit Code(s): J69.0 - Pneumonitis due to inhalation of food and vomit Status: Acute Assessment and Plan: Unasyn order will continue same (3) Closed rib fracture: Qualifiers: Encounter type: initial encounter Laterality: left Rib fracture type: multiple ribs Qualified Code(s): S22.42XA - Multiple fractures of ribs, left side, initial encounter for closed fracture Code(s): S22.39XA - Fracture of one rib, unspecified side, initial encounter for closed fracture Status: Acute Assessment and Plan: Due to chest compression Incentive spirometry (4) Respiratory failure with hypoxia: Code(s): J96.91 - Respiratory failure, unspecified with hypoxia Status: Acute Assessment and Plan: Due to drug overdose Reverse with use of Narcan in the site next continue to monitor pulse oximetry on nasal cannula oxygen (5) UTI (urinary tract infection): Code(s): N39.0 - Urinary tract infection, site not specified Status: Acute Assessment and Plan: On Unasyn Follow urine culture (6) Acute encephalopathy: Code(s): G93.40 - Encephalopathy, unspecified Status: Acute Assessment and Plan: CT head negative Likely due to drug overdose (7) Colitis: Code(s): K52.9 - Noninfective gastroenteritis and colitis, unspecified Status: Acute Assessment and Plan: Possible colitis per CT No diarrhea Continue to monitor Additional Plan DVT prophylaxis Lovenox Subjective Date/time seen: 03/13/21 16:58 Found down/unresponsive after use of cocaine however might be mixed with multiple different drugs UDS positive for amphetamine Intentional use interval history 03/11 Patient still remains quite somnolent complaint shortness ribs pain, patient is being treated with aspiration pneumonia with Unasyn will continue to monitor, patient with a history of alcohol abuse high risk of DT start the patient on CIWA protocol and Librium, will continue to monitor further recommendation to follow. interval history 03/12 Today patient complai
[2021-03-14 00:18] LABS: Vancomycin Trough 7.6 ug/mL (10.0-20.0)
[2021-03-14] MEDS: diphenhydrAMINE HCl INJ 50 MG/ML VIAL IV PUSH (02:47)
[2021-03-14 04:00] VITALS: BP 132/64; PULSE 60; RESP 20; TEMP 36.2; O2SAT 97
[2021-03-14] MEDS: LORazepam INJ (*CRX) 2 MG/ML VIAL 1 MG IV PUSH (04:00)
[2021-03-14 06:13] LABS: Hemoglobin 15.1 g/dL (14.0-18.0); Mean Corpuscular HGB Conc 35.1 g/dl (32-36); Mean Corpuscular Hemoglobin 31.9 pg (26-34); Mean Corpuscular Volume 90.7 fl (80-100); Mean Platelet Volume 9.6 fl (7.4-10.4); Platelet Count Result 354 k/mm3 (150-375); Red Blood Count 4.74 M/mm3 (4.6-6.20); Red Cell Distribution Width 11.2 % (11.5-14.5); White Blood Count 5.5 K/mm3 (4.5-10.0)
[2021-03-14] MEDS: chlordiazePOXIDE (*CRX) 25 MG CAPSULE PO (06:16)
[2021-03-14] MEDS: AMPICILLIN SULB 3 GM/NS 100 ML 3 GM/100 ML VIAL IVPB (06:16)
[2021-03-14 06:52] LABS: Alanine Aminotransferase 16 U/L (4-50); Albumin Level 4.1 g/dL (3.5-5.1); Alkaline Phosphatase 61 U/L (38-126); Anion Gap 13 mmol/L (8-16); Aspartate Amino Transferase 23 U/L (17-59); Bilirubin,Total 0.4 mg/dL (0.2-1.3); Blood Urea Nitrogen 9 mg/dL (9-20); Calcium 9.3 mg/dL (8.4-10.2); Carbon Dioxide 24 mmol/L (22-30); Chloride 103 mmol/L (98-107); Estimated CRCL calculation 125 ml/min; Estimated Glomerular Filt Rate > 60; Glucose 101 mg/dL (65-110); Magnesium 1.9 mg/dL (1.6-2.3); Potassium 3.6 mmol/L (3.4-5.0); Sodium 140 mmol/L (137-145)
[2021-03-14 08:00] VITALS: BP 120/75; PULSE 56; RESP 18; TEMP 36.4; O2SAT 88
--- NOTE | 2021-03-14 08:12 | PM.DS ---
DS: Admitting Diagnosis Discharge Date 03/14/2021 Admitting Diagnosis Chief Complaint: Unresponsiveness, overdose DS: Discharge Diagnosis Discharge Diagnosis (1) Drug overdose: Qualifiers: Encounter type: initial encounter Injury intent: accidental or unintentional Qualified Code(s): T50.901A - Poisoning by unspecified drugs, medicaments and biological substances, accidental (unintentional), initial encounter Code(s): T50.901A - Poisoning by unspecified drugs, medicaments and biological substances, accidental (unintentional), initial encounter Status: Acute Assessment and Plan: 03/13/21 16:58 Found down/unresponsive after use of cocaine however might be mixed with multiple different drugs UDS positive for amphetamine Intentional use interval history 03/11 Patient still remains quite somnolent complaint shortness ribs pain, patient is being treated with aspiration pneumonia with Unasyn will continue to monitor, patient with a history of alcohol abuse high risk of DT start the patient on CIWA protocol and Librium, will continue to monitor further recommendation to follow. interval history 03/12 Today patient complains of cough and sore in his chest, does appear in pain, to further evaluate chest x-ray was shows persistent bilateral patchy pneumonia suspect aspiration, will add vancomycin to Unasyn, patient remains clinically stable is not as tremulous today, will continue to monitor will have a PT OT evaluate the patient and further recommendation to follow. interval history 03/13 today patient states is feeling much better not a short of breath and on room air, no fever or chills, continue 1 more day Unasyn and vancomycin remains clinically stable will discharge the patient tomorrow. (2) Aspiration pneumonia: Qualifiers: Aspiration pneumonia type: due to vomit Laterality: bilateral Lung location: unspecified part of lung Qualified Code(s): J69.0 - Pneumonitis due to inhalation of food and vomit Code(s): J69.0 - Pneumonitis due to inhalation of food and vomit Status: Acute Assessment and Plan: Unasyn order will continue same (3) Closed rib fracture: Qualifiers: Encounter type: initial encounter Laterality: left Rib fracture type: multiple ribs Qualified Code(s): S22.42XA - Multiple fractures of ribs, left side, initial encounter for closed fracture Code(s): S22.39XA - Fracture of one rib, unspecified side, initial encounter for closed fracture Status: Acute Assessment and Plan: Due to chest compression Incentive spirometry (4) Respiratory failure with hypoxia: Code(s): J96.91 - Respiratory failure, unspecified with hypoxia Status: Acute Assessment and Plan: Due to drug overdose Reverse with use of Narcan in the site next continue to monitor pulse oximetry on nasal cannula oxygen (5) UTI (urinary tract infection): Code(s): N39.0 - Urinary tract infection, site not specified Status: Acute Assessment and Plan: On Unasyn Follow urine culture (6) Acute encephalopathy: Code(s): G93.40 - Encephalopathy, unspecified Status: Acute Assessment and Plan: CT head negative Likely due to drug overdose (7) Colitis: Code(s): K52.9 - Noninfective gastroenteritis and colitis, unspecified Status: Acute Assessment and Plan: Possible colitis per CT No diarrhea Continue to monitor DS: Summary Hospital Course Reason for hospitalization: Chief Complaint: Unresponsiveness, overdose Narrative: Is a 22-year-old gentleman brought to the ER via EMS with unresponsiveness. He states that he was snorting cocaine last night he is on chair by the time. When he went risk unresponsive. CPR was performed by bystander. When EMS arrived he was found lying on the ground unresponsive with gasping respiration pale and diaphoretic. The patient had a needle sticking out of his pocket. He
--- NOTE | 2021-03-14 09:30 | PC.NURSE ---
Pt discharged via wheelchair at 0915. Spoke with patient and mother and encouraged both to choose a primary care provider. Encouraged pt to continue IS and instructed to deep breath and cough. Pt's mother asked about treatment for pain and instructed to treat pain with OTC. Tylenol, NSAIDS, and Benadryl for itching, both expressed understanding.
== END 2021-03-14 09:15 | disposition home or self-care (01) | DRG 812 ==
LOC: ANHED 06:36 → ANHCPC 03-11 22:12 → ANHIMU 03-18 11:39
PROVIDERS: Internal Medicine; Admitting Provider Internal Medicine; Emergency Provider Emergency Medicine; Visit Provider Family Medicine
DX: T50.991A Poisoning by other drugs, medicaments and biological substances, accidental (unintentional), initial encounter (principal); J96.01 Acute respiratory failure with hypoxia; G92 Toxic encephalopathy; J69.0 Pneumonitis due to inhalation of food and vomit; M96.89 Other intraoperative and postprocedural complications and disorders of the musculoskeletal system; Y84.8 Other medical procedures as the cause of abnormal reaction of the patient, or of later complication, without mention of misadventure at the time of the procedure; Z20.822 Contact with and (suspected) exposure to COVID-19; K52.9 Noninfective gastroenteritis and colitis, unspecified; F15.90 Other stimulant use, unspecified, uncomplicated
CPT/HCPCS: 36415; 36600; 70450; 71046; 71260; 72125; 74177; 80048; 80053; 80202; 80307; 81001; 82550; 82805; 83605; 83735; 84484; 85025; 85027; 87040; 87086; 87088; 87426; 93005; 96365; 96375; 99285; A9270; C9803; G0378; J0295; J1200; J1650; J2060; J2310; J3370; J7030; Q9967